=== PATIENT | female | born 1980 | race Caucasian/White ===

== ENCOUNTER 2016-08-25 08:50 | Observation (INO) | payer OTHER ==
[~2016-08-25] VITALS: Ht 177.8 cm; Wt 95.0 kg
[2016-08-25] MEDS ORDERED: NS 1,000 ML IV ONE (11:15)
[2016-08-25] MEDS ORDERED: DERMABOND TOPICAL SKIN ADHESIVE TOP ONE (11:15)
--- NOTE | 2016-08-25 11:29 | ED PDOC ---
Post-Departure Follow-Up PT PRESENTS WITH FAMILY TODAY STATING SHE WAS GETTING HER SON READY FOR SCHOOL, GOT HIS LUNCH TOGETHER AND THEN WENT INTO THE BATHROOM TO DO HER HAIR AND MAKEUP. PT STATES WHEN WALKING INTO THE BATHROOM, SHE BEGAN TO FEEL LIGHTHEADED SO SHE WENT TO THE KITCHEN TO SIT DOWN. SHE STATES SHE FELL, AND THEN RECALLS WAKING UP ON THE FLOOR. UNKNOWN HOW LONG SHE WAS DOWN ON THE FLOOR. STATES SHE STRUCK HER FACE ON THE FLOOR AND "THERE WAS A LOT OF BLOOD." CURRENTLY HAS PAIN IN HER NOSE, "AND I THINK IT'S BROKEN. I TRIED TO PUSH IT BACK INTO PLACE BECAUSE IT LOOKED OFF CENTER." HAS NEVER HAD A SYNCOPAL EPISODE LIKE THIS BEFORE. OTHERWISE, HAS NOT BEEN ILL WITH FEVER, SORE THROAT, NAUSEA/ VOMITING. VALERIE SALAS PA-C Aug 25, 2016 11:29
[2016-08-25 12:11] LABS: BASO # 0.1 K/mm3 (0.0-0.2); BASO % 0.8 % (0.0-1.0); EOS # 0.1 K/mm3 (0.0-0.50); EOS % 0.7 % (0.0-3.0); LARGE UNSTAINED CELL # 0.1 K/mm3 (0.0-0.4); LARGE UNSTAINED CELL % 1.3 % (0.0-4.0); LYMPH # 1.3 K/mm3 (1.5-4.5); LYMPH % 13.2 % (24.0-44.0); MEAN CORPUSCULAR HEMOGLOBIN 26.3 pg (27.0-33.0); MEAN CORPUSCULAR HGB CONC 32.7 g/dl (32.0-36.5); MEAN CORPUSCULAR VOLUME 80.3 fl (80.0-96.0); MONO # 0.4 K/mm3 (0.0-0.8); MONO % 3.9 % (0.0-5.0); NEUTROPHILS # 8.2 K/mm3 (1.8-7.7); NEUTROPHILS % 80.1 % (36.0-66.0); PLATELET COUNT, AUTOMATED 324 k/mm3 (150-450); RED CELL DISTRIBUTION WIDTH 14.7 % (11.5-14.5)
[2016-08-25 12:16] LABS: WHITE BLOOD COUNT 9.2 K/mm3 (4.0-10.0)
[2016-08-25 12:22] LABS: ANION GAP 5 MEQ/L (8-16); BLOOD UREA NITROGEN 9 MG/DL (7-18); CALCIUM LEVEL 8.6 MG/DL (8.5-10.1); CARBON DIOXIDE LEVEL 28 MEQ/L (21-32); CHLORIDE LEVEL 106 MEQ/L (98-107); CREATININE FOR GFR 0.72 MG/DL (0.55-1.02); GLOMERULAR FILTRATION RATE > 60.0 (>60); GLUCOSE, FASTING 106 MG/DL (70-105); POTASSIUM SERUM 4.3 MEQ/L (3.5-5.1); SODIUM LEVEL 139 MEQ/L (136-145)
[2016-08-25 12:28] LABS: HCG, SERUM QUANTITATIVE < 1.0 MIU/ML
[2016-08-25] MEDS ORDERED: ONDANSETRON 4MG/2ML VIAL (J2405) IV PRN (13:30)
--- NOTE | 2016-08-25 13:37 | REP ---
REASON: Pain after trauma. TECHNIQUE: 4.5 mm contiguous transaxial sections were obtained from the skull base to the cerebral convexities with thin cuts through the posterior fossa without the administration of intravenous contrast. FINDINGS: The ventricles and sulci are consistent with the patient's age. There are no extra-axial fluid collections. There is no mass effect. The deep cerebral white matter is consistent with the patient's age. The orbital and petrous structures , cerebellopontine angles, and posterior fossa are unremarkable. The sella turcica, cavernous, and paracavernous structures are essentially unremarkable. The visualized portions of the paranasal sinuses and mastoid air cells are clear. Images of the skull base show no gross abnormality. A few images of the nasal bone area were obtained on this brain CT showing a nasal bone fracture. IMPRESSION: Essentially unremarkable CT examination of the brain. Signed by Elio Gan DO 08/25/2016 03:58 P
--- NOTE | 2016-08-25 13:38 | REP ---
REASON: Nasal injury. COMPARISON: None. There is a comminuted nasal bone fracture. There is associated soft tissue swelling. Signed by Eloi Gan DO 08/25/2016 03:58 P
--- NOTE | 2016-08-25 14:19 | HPEPDOC ---
General Date of Admission 08/25/16 Primary Care Physician: Young Kim DO Attending Physician: RITA CORADO DO Chief Complaint The patient is a 36-year-old female admitted with a reason for visit of Syncopal Episode. History of Present Illness 36-year-old female with no significant past medical history presented to the ER after she had an episode of syncope. The patient states that she was getting ready for work this morning and was applying makeup when she suddenly started to feel nauseous and lightheaded. She states that she went to sit down on a bench, but thinks that she lost her balance in the process and fell on the floor hitting her head and face on the floor. Prior to this event the patient denied any complaints of fevers, chills, cough, chest pain, palpitations, shortness of breath, abdominal pain, or any vomiting/diarrhea. The patient denies any similar episodes in the past. The patient denies any complaints of focal neurological deficits such as visual blurring, facial droop, slurring of speech, or any other acute neurological deficits. The patient denies any urinary or bowel incontinence, any tongue biting, or any jerking movements of her extremities. 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 She denies any family history of sudden cardiac . In the ER, a CT scan of the head and orbit revealed a comminuted nasal bone fracture, with no other acute findings. The patient will be admitted to the hospitalist service for further observation on telemetry. Home Medications No Active Prescriptions or Reported Meds Allergies Coded Allergies: No Known Allergies (Unverified , 08/25/16) Past Medical History Medical History As noted in HPI Family History Significant Family History: No pertinent family hx Social History * Smoker: cigarettes (smoked 1 pack per week of tobacco for the last 20+ years) Alcohol: occationally Drugs: denies Recent Travel/Sick Contacts: Denies: Recent travel, Recent sick contacts Review of Symptoms Other systems 10 point review of systems negative unless otherwise specified in HPI Physical Examination General Exam: Positive: Alert, Cooperative, No Acute Distress ENT Exam: Positive: Other ENT (patient noted to have soft tissue swelling of the nose, with superficial contusion) Neck Exam: Negative: JVD Chest Exam: Positive: Clear to auscultation, Normal air movement Heart Exam: Positive: Rate Normal, Normal S1, Normal S2 Telemetry: Positive: Sinus Abdomen Exam: Positive: Tenderness, Negative: Soft Extremity Exam: Negative: Tenderness, Swelling Psych Exam: Positive: Oriented x 3 Vital Signs Vital Signs Date Time Temp Pulse Resp B/P (MAP) Pulse Ox O2 Delivery O2 Flow Rate FiO2 08/25/16 14:00 56 97 08/25/16 12:23 110/64 (79) 08/25/16 08:51 96.2 18 Room Air Laboratory Data Labs 24H Laboratory Tests 2 08/25/16 11:41: Bedside Glucose (Misc Panel) 109H 08/25/16 11:48: White Blood Count 9.2, Red Blood Count 4.39, Hemoglobin 11.5L, Hematocrit 35.3L , Mean Corpuscular Volume 80.3, Mean Corpuscular Hemoglobin 26.3L, Mean Corpuscular Hemoglobin Concent 32.7, Red Cell Distribution Width 14.7H, Platelet Count 324, Neutrophils (%) (Auto) 80.1H, Lymphocytes (%) (Auto) 13.2L, Monocytes (%) (Auto) 3.9, Eosinophils (%) (Auto) 0.7, Basophils (%) (Auto) 0.8, Neutrophils # (Auto) 8.2H, Lymphocytes # (Auto) 1.3L, Monocytes # (Auto) 0.4, Eosinophils # (Auto) 0.1, Basophils # (Auto) 0.1, Large Unclassified Cells % 1.3 , Large Unclassified Cells # 0.1, Anion Gap 5L, Glomerular Filtration Rate > 60.0, Blood Urea Nitrogen 9, Creatinine 0.72, Sodium Level 139, Potassium Level 4.3, Chloride Level 106, Carbon Dioxide Level 28, Calcium Level 8.6, Total Creatine Kinase 99, Creatine Kinase MB 1.0, Creatine Kinase MB Relative Index 1.01, Troponin I < 0.02, Thyroid Stimulating Hormone (TSH) 0.442, Human Chorionic Gonadotropin, Quant < 1.0 08/25/16 12:02: Urine Appearance CLEAR, Urine Color COLORLESS, Urine pH 7.0, Urine Specific [place] 1.003, Urine Protein NEGATIVE, Urine Glucose (UA) NEGATIVE, Urine Ketones NEGATIVE, Urine Urobilinogen 0.2, Urine Bilirubin NEGATIVE, Urine Leukocyte Esterase NEGATIVE, Urine Blood NEGATIVE, Urine Nitrite NEGATIVE, Urine WBC (Auto) 0, Urine RBC (Auto) 0, Urine Hyaline Casts (Auto) 0, Urine Bacteria (Auto) 1+H, Urine Squamous Epithelial Cells 1, Urine Sperm (Auto) CBC/BMP Laboratory Tests 08/25/16 11:48 Red Blood Count 4.39, Mean Corpuscular Volume 80.3, Mean Corpuscular Hemoglobin 26.3 L, Mean Corpuscular Hemoglobin Concent 32.7, Red Cell Distribution Width 14.7 H, Neutrophils (%) (Auto) 80.1 H, Lymphocytes (%) (Auto) 13.2 L, Monocytes (%) (Auto) 3.9, Eosinophils (%) (Auto) 0.7, Basophils (%) (Auto) 0.8, Neutrophils # (Auto) 8.2 H, Lymphocytes # (Auto) 1.3 L, Monocytes # (Auto) 0.4, Eosinophils # (Auto) 0.1, Basophils # (Auto) 0.1, Calcium Level 8.6, Total Creatine Kinase 99 Plan / VTE VTE Prophylaxis Ordered?: Yes Plan Plan Syncopal Episode likely 2/2 Vasovagal event We will admit the patient to PCU CT Scan of the Head/Orbit notable for comminuted nasal bone fracture EKG noted to be in Sinus rhythm, with bradycardia raging from 50-60s on international banker Initial troponin negative, will serially trend 2D ECHO ordered We will cont to monitor the patient on Telemetry for now Comminuted nasal bone fracture 2/2 Fall Pain medication prn DVT Prophylaxis--SCDs/TEDs The patient will be admitted under the service of Dr. Corado, who will begin to follow the patient on 08/26/16 at 7 AM. ALEX JACKSON MD Aug 25, 2016 14:19
[2016-08-25 16:00] VITALS: BP 127/71
[2016-08-25] MEDS: ACETAMINOPHEN TAB 650MG DOSE (2X325MG) PO PRN (16:49)
[2016-08-25 20:02] VITALS: BP 126/85
[2016-08-26] VITALS (8 sets, daily range): BP systolic 92–127; BP diastolic 57–79
[2016-08-26 05:37] LABS: MEAN CORPUSCULAR HEMOGLOBIN 26.4 pg (27.0-33.0); MEAN CORPUSCULAR HGB CONC 32.5 g/dl (32.0-36.5); MEAN CORPUSCULAR VOLUME 81.3 fl (80.0-96.0); RED CELL DISTRIBUTION WIDTH 14.8 % (11.5-14.5)
[2016-08-26 06:10] LABS: ANION GAP 5 MEQ/L (8-16); BLOOD UREA NITROGEN 9 MG/DL (7-18); CALCIUM LEVEL 8.1 MG/DL (8.5-10.1); CARBON DIOXIDE LEVEL 27 MEQ/L (21-32); CHLORIDE LEVEL 108 MEQ/L (98-107); GLOMERULAR FILTRATION RATE > 60.0 (>60); GLUCOSE, FASTING 99 MG/DL (70-105); POTASSIUM SERUM 3.9 MEQ/L (3.5-5.1); SODIUM LEVEL 140 MEQ/L (136-145)
--- NOTE | 2016-08-26 09:16 | ECGEPIP ---
Stationary ECG Study [facility] - ED Test Date: 2016-08-25 Pat Name: ROLANDO VERNON Department: Room: - Gender: F Alcohol Still Operator: : 1980 Requested By: VALERIE Piper PA-C Order Number: [id number] Reading MD: Loren Vogel Measurements Intervals [place] Rate: 57 P: 2 WA: 152 QRS: 17 QRSD: 82 T: 16 QT: 430 QTc: 422 Interpretive Statements SINUS BRADYCARDIA LOW QRS VOLTAGE IN PRECORDIAL LEADS NO PRIOR FOR COMPARISON Electronically Signed On 08-26-2016 9:15:42 EDT by Loren Vogel
[2016-08-26] MEDS: ACETAMINOPHEN TAB 650MG DOSE (2X325MG) PO PRN ×2 (10:01→15:48)
--- NOTE | 2016-08-26 18:30 | IPNPDOC ---
Subjective Date Seen The patient was seen on 08/26/16. Subjective Chief Complaint/HPI The patient is a 36-year-old female admitted with a reason for visit of Syncope. Constitutional: Denies: Chills, Fever, Night Sweats ENT: Reports: Other Symptoms (fractured nose) Genitourinary: Denies: Dysuria, Frequency, Incontinence, Retention Objective Physical Examination General Exam: Positive: Alert, Cooperative, No Acute Distress ENT Exam: Positive: Other ENT (patient noted to have soft tissue swelling of the nose, with superficial contusion) Neck Exam: Negative: JVD Chest Exam: Positive: Clear to auscultation, Normal air movement Heart Exam: Positive: Rate Normal, Normal S1, Normal S2 Telemetry: Positive: Sinus Abdomen Exam: Positive: Tenderness, Negative: Soft Extremity Exam: Negative: Tenderness, Swelling Psych Exam: Positive: Oriented x 3 Assessment /Plan Problems (1) Syncope Status: Acute Problem Text: * likely vasovagal * no acute findings on CT head * ortho statics negative * no history of syncope in the past (2) Bradycardia Status: Chronic Problem Text: * sinus bradycardia * asymptomatic (3) Nasal bone fracture Status: Acute Problem Text: * spoke with Dr Jarquin office who have agreed to see pt in office next thursday upon discharge (4) Anemia Status: Acute Problem Text: * repeat H&H has improved * likely dilutional * will repeat labs in am * no signs of bleeding Plan/VTE VTE Prophylaxis Ordered?: Yes VS, I&O, 24H, [facility] Vital Signs/I&O Vital Signs Date Time Temp Pulse Resp B/P (MAP) Pulse Ox O2 Delivery O2 Flow Rate FiO2 08/26/16 16:00 98.2 55 18 108/60 (76) 97 Room Air I&O- Last 24 Hours up to 6 AM 08/26/16 06:00 Intake Total 1240 ml Output Total 1000 ml Balance 240 ml Laboratory Data 24H LABS Laboratory Tests 2 08/25/16 21:09: Total Creatine Kinase 87, Creatine Kinase MB 1.0, Creatine Kinase MB Relative Index 1.14, Troponin I < 0.02 08/26/16 05:11: Total Creatine Kinase 67, Creatine Kinase MB 1.0, Creatine Kinase MB Relative Index 1.49, Troponin I < 0.02, Anion Gap 5L, Glomerular Filtration Rate > 60.0, Blood Urea Nitrogen 9, Creatinine 0.80, Sodium Level 140, Potassium Level 3.9, Chloride Level 108H, Carbon Dioxide Level 27, Calcium Level 8.1L CBC/BMP Laboratory Tests 08/26/16 05:11 Red Blood Count 3.97 L, Mean Corpuscular Volume 81.3, Mean Corpuscular Hemoglobin 26.4 L, Mean Corpuscular Hemoglobin Concent 32.5, Red Cell Distribution Width 14.8 H, Calcium Level 8.1 L, Total Creatine Kinase 67 08/26/16 12:11 RITA GONZALEZ DO Aug 26, 2016 18:30
[2016-08-26] MEDS: MORPHINE 30 MG TAB **MSIR PO PRN (19:50)
[2016-08-26] MEDS ORDERED: SLF 3 ML SYR IV PRN (20:00)
--- NOTE | 2016-08-26 21:03 | ECHO ---
DATE OF PROCEDURE: 08/26/2016 INDICATION: Syncope. REFERRING PHYSICIAN: Dr. Marc Guerra The patient measures 178 cm and weighs 95 kg. DIMENSIONS: IVS: 0.9 LV: 4.5 LVPW: 0.7 LA: 3.1 Aorta: 3.4 FINDINGS: The study is of good technical quality. Left ventricle is normal size and systolic function with estimated LVEF 60-65%. Right ventricle is also normal size and systolic function. Both atria appear normal. All four cardiac valves were well seen and appeared normal. No pericardial effusion is noted. Inferior vena cava is normal size and appropriately collapses with respiration, indicative of normal central venous pressure. Aortic root is normal. Aortic arch is normal. Abdominal aorta was not well seen. Doppler interrogation reveals no aortic valve disease. There is also no significant mitral valve disease. There is trace tricuspid insufficiency. Calculated pulmonary artery pressure is within normal limits. Pulmonic valve is also functionally competent. Mitral inflow pattern and tissue Doppler imaging of mitral annulus reveal normal diastolic function. CONCLUSION: 1. Study is of good technical quality. 2. Normal LV size, systolic and diastolic function. 3. No valvular disease. 4. Normal central venous pressure and likely normal pulmonary artery pressure. COMMENTS: Subacute bacterial endocarditis (SBE) prophylaxis is not recommended. Essentially normal echocardiogram.
[2016-08-26] MEDS: SLF 3 ML SYR IV SCH (21:42)
--- NOTE | 2016-08-27 00:50 | ECGEPIP ---
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
[2016-08-27 04:03] VITALS: BP 107/66
[2016-08-27] MEDS: SLF 3 ML SYR IV SCH (04:06)
[2016-08-27 08:00] VITALS: BP_SYST 114; BP_DIAS 61; BP_DIAS 64; BP_DIAS 65
[2016-08-27] MEDS: MORPHINE 30 MG TAB **MSIR PO PRN (08:08)
[2016-08-27] MEDS ORDERED: MSIR30TA PO (10:11)
--- NOTE | 2016-08-30 15:50 | IPNPDOC ---
Subjective Date Seen The patient was seen on 08/27/16. Subjective Chief Complaint/HPI The patient is a 36-year-old female admitted with a reason for visit of Syncope. General: Denies: ROS Unobtainable, Chills, Night Sweats, Fatigue, Malaise, Normal Appetite, Other Symptoms Pulmonary: Denies: Dyspnea, Cough Cardiovascular: Denies: Chest Pain, Palpitations, Orthopnea, Paroxysmal Noc. Dyspnea, Lt Headedness Objective Physical Examination General Exam: Positive: Alert, Cooperative, No Acute Distress ENT Exam: Positive: Other ENT (patient noted to have soft tissue swelling of the nose, with superficial contusion) Neck Exam: Negative: JVD Chest Exam: Positive: Clear to auscultation, Normal air movement Heart Exam: Positive: Rate Normal, Normal S1, Normal S2 Telemetry: Positive: Sinus Abdomen Exam: Positive: Tenderness, Negative: Soft Extremity Exam: Negative: Tenderness, Swelling Psych Exam: Positive: Oriented x 3 Assessment /Plan Problems (1) Syncope Status: Acute Problem Text: * likely vasovagal * no acute findings on CT head * ortho statics negative * no history of syncope in the past * will discharge pt today (2) Bradycardia Status: Chronic Problem Text: * sinus bradycardia * asymptomatic (3) Nasal bone fracture Status: Acute Problem Text: * spoke with Dr Britton rothman who have agreed to see pt in office next thursday upon discharge (4) Anemia Status: Acute Problem Text: * repeat H&H has improved * likely dilutional * will repeat labs in am * no signs of bleeding Plan/VTE VTE Prophylaxis Ordered?: Yes VS, I&O, 24H, Fishbone Vital Signs/I&O Vital Signs Date Time Temp Pulse Resp B/P (MAP) Pulse Ox O2 Delivery O2 Flow Rate FiO2 08/27/16 08:48 18 08/27/16 08:00 97.7 61 114/64 (81) 97 Room Air RITA GONZALEZ DO Aug 30, 2016 15:50
== END 2016-08-27 12:36 | disposition home or self-care (01) ==
LOC: M ED 09:52 → M ED INP 13:29 → M PCU 15:36
PROVIDERS: ADMIT Internal Medicine; ATTEND Internal Medicine
DX: R55 Syncope and collapse (principal); R00.1 Bradycardia, unspecified; S02.2XXB Fracture of nasal bones, initial encounter for open fracture; W01.198A Fall on same level from slipping, tripping and stumbling with subsequent striking against other object, initial encounter; Y92.009 Unspecified place in unspecified non-institutional (private) residence as the place of occurrence of the external cause; Y93.01 Activity, walking, marching and hiking; Y99.8 Other external cause status; D64.9 Anemia, unspecified; F17.210 Nicotine dependence, cigarettes, uncomplicated

== ENCOUNTER → 2016-09-03 | Day surgery (SDC) | payer OTHER ==
[~2016-09-03] VITALS: Ht 177.8 cm; Wt 95.3 kg
[~2016-09-03] MED LIST: ACETAMINOPH W/CODEINE #3 TAB UD PO PRN; EPINEPHrine 1MG/ML INJ 30ML MD-VIAL As Ordered ONE; LIDOCAINE 2% INJ 100 MG/5 ML SDV (FOR ANES.) As Ordered ONE; LIDOCAINE W/EPINEPHRINE 1% 20ML VIAL As Ordered ONE; LR 1,000 ML IV SCH; METHYLENE BLUE 0.5% (5MG/ML) 10 ML AMP (PROVAYBLUE)(Q9968 PER 1MG) As Ordered ONE; MIDAZOLAM INJ 2 MG/2 ML VIAL (J2250) As Ordered ONE; MSIR30TA PO; ONDANSETRON 4MG/2ML VIAL (J2405) As Ordered ONE; ONDANSETRON 4MG/2ML VIAL (J2405) IV PRN; PROPOFOL 200 MG/20 ML VIAL As Ordered ONE; ROCURONIUM BROMIDE 50 MG/5 ML VIAL/SYRINGE As Ordered ONE; SUCCINYLCHOLINE 100 MG/5 ML SYRINGE (J0330) As Ordered ONE; dexameTHASONE 4 MG/ML 1ML VIAL (J1100) As Ordered ONE; fentaNYL 100 MCG/2 ML INJECTION (J3010) As Ordered ONE; fentaNYL 100 MCG/2 ML INJECTION (J3010) IV PRN
[2016-09-03 08:52] LABS: CONTROL LINE UCG INT CTR LINE PRESENT
[2016-09-03 12:30] VITALS: BP 115/70
--- NOTE | 2016-09-03 13:26 | RO ---
DATE OF PROCEDURE: 09/03/2016 PREOPERATIVE DIAGNOSIS: Nasal fracture. POSTOPERATIVE DIAGNOSIS: Nasal fracture. PROCEDURE: Reduction of nasal fracture. SURGEON: Dom Jarquin MD FIBERGLASS LAMINATOR: ANESTHESIA: DESCRIPTION OF PROCEDURE: Under general anesthesia, with the patient intubated, the patient draped in the usual manner. I used pledgets of adrenaline 1:100,000. I then used the nasal elevator of the nasal fracture on the right side. The left side was pushed medially, the right laterally. Once this was done, the nose was straight. I put a splint on the external aspect of the nose and the patient transferred to the recovery room in excellent condition.
== END | disposition home or self-care (01) ==
LOC: M SDC 08:10
PROVIDERS: ATTEND Otolaryngology
DX: S02.2XXA Fracture of nasal bones, initial encounter for closed fracture (principal); F17.290 Nicotine dependence, other tobacco product, uncomplicated; R00.1 Bradycardia, unspecified; R55 Syncope and collapse; G43.909 Migraine, unspecified, not intractable, without status migrainosus; W19.XXXA Unspecified fall, initial encounter; Y92.89 Other specified places as the place of occurrence of the external cause; Y93.89 Activity, other specified; Y99.8 Other external cause status
CPT/HCPCS: 21320; 84703; J0330; J1100; J2250; J2405; J3010; Q9968

== ENCOUNTER → 2016-11-19 | Outpatient (REF) | payer OTHER ==
[~2016-11-19] MED LIST changes: -ACETAMINOPH W/CODEINE #3 TAB UD PO PRN; -EPINEPHrine 1MG/ML INJ 30ML MD-VIAL As Ordered ONE; -LIDOCAINE 2% INJ 100 MG/5 ML SDV (FOR ANES.) As Ordered ONE; -LIDOCAINE W/EPINEPHRINE 1% 20ML VIAL As Ordered ONE; -LR 1,000 ML IV SCH; -METHYLENE BLUE 0.5% (5MG/ML) 10 ML AMP (PROVAYBLUE)(Q9968 PER 1MG) As Ordered ONE; -MIDAZOLAM INJ 2 MG/2 ML VIAL (J2250) As Ordered ONE; -ONDANSETRON 4MG/2ML VIAL (J2405) As Ordered ONE; -ONDANSETRON 4MG/2ML VIAL (J2405) IV PRN; -PROPOFOL 200 MG/20 ML VIAL As Ordered ONE; -ROCURONIUM BROMIDE 50 MG/5 ML VIAL/SYRINGE As Ordered ONE; -SUCCINYLCHOLINE 100 MG/5 ML SYRINGE (J0330) As Ordered ONE; -dexameTHASONE 4 MG/ML 1ML VIAL (J1100) As Ordered ONE; -fentaNYL 100 MCG/2 ML INJECTION (J3010) As Ordered ONE; -fentaNYL 100 MCG/2 ML INJECTION (J3010) IV PRN
== END ==
LOC: M SFHCCLAY 16:36
PROVIDERS: ATTEND Family Medicine
DX: Z01.419 Encounter for gynecological examination (general) (routine) without abnormal findings (principal)